=== PATIENT | female | born 1965 | race Caucasian/White ===

== ENCOUNTER 2024-10-11 02:59 | Emergency (ER) | payer MEDICAID ==
[~2024-10-11] VITALS: Ht 170.2 cm; Wt 99.8 kg
[2024-10-11] MEDS ORDERED: ALBU8.5H8 INH (04:25)
[2024-10-11] MEDS ORDERED: TAMS-3 PO (04:25)
[2024-10-11] MEDS ORDERED: TEMA15CA PO (04:25)
[2024-10-11] MEDS ORDERED: DOCU100P MC (04:25)
[2024-10-11] MEDS ORDERED: LACT10SO58 PO (04:25)
[2024-10-11] MEDS ORDERED: LEVE500T83 PO (04:25)
[2024-10-11] MEDS ORDERED: TIOT18CA3 INH (04:25)
[2024-10-11] MEDS ORDERED: BUPR1FIL53 (04:25)
[2024-10-11] MEDS ORDERED: PRED20TA PO (04:25)
[2024-10-11] MEDS ORDERED: ESCI5TAB PO (04:25)
[2024-10-11] MEDS ORDERED: DIPH-1062 PO (04:25)
[2024-10-11] MEDS ORDERED: LEVO100T10 PO (04:25)
[2024-10-11] MEDS ORDERED: DIVA500T54 PO (04:25)
[2024-10-11] MEDS ORDERED: LORA0.5T48 GT (04:25)
[2024-10-11] MEDS ORDERED: FLUT1AER3 IH (04:25)
[2024-10-11] MEDS ORDERED: ONDA4TAB11 PO (04:25)
[2024-10-11] MEDS ORDERED: FLUT1BLS15 INH (04:25)
[2024-10-11] MEDS ORDERED: ONDANSETRON 4 MG/2 ML VIAL ONE (04:48)
[2024-10-11] MEDS ORDERED: HYDROMORPHONE 1 MG/1 ML DISP.SYRIN ONE (04:49)
[2024-10-11] MEDS: HYDROMORPHONE 1 MG/1 ML DISP.SYRIN IV ONE (05:00)
[2024-10-11] MEDS: ONDANSETRON 4 MG/2 ML VIAL IV ONE (05:00)
[2024-10-11 05:05] LABS: *BILIRUBIN,URIN NEGATIVE (NEGATIVE); *BLOOD, URINE NEGATIVE (NEGATIVE); *CLARITY,URINE CLEAR (CLEAR); *COLOR,URINE YELLOW (YELLOW); *KETONES,URINE NEGATIVE (NEGATIVE); *PROTEIN,URINE NEGATIVE (NEGATIVE); *UROBILINOGEN,URINE 0.2 E.U./dl (NORMAL); LEUKOCYTE ESTERASE ,URINE NEGATIVE (NEGATIVE); NITRITE, URINE NEGATIVE (NEGATIVE); UGLUCOSE NEGATIVE (NEGATIVE)
[2024-10-11 05:15] LABS: BASOPHILS # (AUTO) 0.1 K/UL (0.0-0.2); BASOPHILS % (AUTO) 0.6 % (0.0-2.0); EOSINOPHILS # (AUTO) 0.2 K/uL (0.0-0.7); HEMATOCRIT 35.9 % (31.2-41.9); HEMOGLOBIN 12.6 g/dL (10.9-14.3); LYMPHOCYTES # (AUTO) 2.3 K/uL (0.8-4.8); LYMPHOCYTES % (AUTO) 28.2 % (20.5-51.5); MEAN CORPUSCULAR HGB CONC 35 g/dL (32.3-35.6); MONOCYTES # (AUTO) 0.8 K/uL (0.1-1.30); MONOCYTES % (AUTO) 9.4 % (0.0-11.0); NEUTROPHILS % (AUTO) 59.8 % (38.5-71.5); PLATELET COUNT (AUTO) 203 K/uL (179-408); RED BLOOD CELL COUNT(AUTO) 3.59 MIL/uL (3.63-4.92); RED CELL DISTRIBUTION WIDTH 13.7 % (12.3-17.7); WHITE BLOOD COUNT (AUTO) 8.3 K/uL (3.8-11.8)
[2024-10-11 05:17] LABS: DIFFERENTIAL COMMENT 1
[2024-10-11 06:08] LABS: ALBUMIN 3.1 g/dL (3.4-5.0); BILIRUBIN,DIRECT 0.1 mg/dL (0.0-0.2); BILIRUBIN,TOTAL 0.3 mg/dL (0.2-1.0); CALCIUM 8.7 mg/dL (8.5-10.1); CREATININE 0.6 mg/dL (0.6-1.3); POTASSIUM 4.3 mmol/L (3.5-5.1); TOTAL PROTEIN, SERUM 7.1 g/dL (6.4-8.2)
[2024-10-11] MEDS ORDERED: IOHEXOL 300MG/ML 100 ML INFUS..BTL ONE (06:32)
[2024-10-11] MEDS ORDERED: BISA10SU61 RC (07:57)
[2024-10-11] MEDS ORDERED: BISA-79 PO (07:57)
[2024-10-11] MEDS ORDERED: MAGNESIUM HYDROXIDE 30 ML LIQUID UDC ONE (08:02)
[2024-10-11] MEDS: MAGNESIUM HYDROXIDE 30 ML LIQUID UDC PO ONE (08:06)
[2024-10-11 11:49] VITALS: BP 120/70; O2SAT 95
== END 2024-10-11 11:51 | disposition home or self-care (01) ==
LOC: ER 03:06
DX: R10.31 Right lower quadrant pain (principal); R11.2 Nausea with vomiting, unspecified; F11.20 Opioid dependence, uncomplicated; G89.4 Chronic pain syndrome; Z79.51 Long term (current) use of inhaled steroids; Z88.0 Allergy status to penicillin; Z88.1 Allergy status to other antibiotic agents; Z88.5 Allergy status to narcotic agent; Z88.6 Allergy status to analgesic agent; Z88.7 Allergy status to serum and vaccine
CPT/HCPCS: 99285; 74177; 96374; 96375; 80076; 80048; 81003; 83690; 85025; 36415; J2405; Q9967; J1171; A4606; A4663